=== PATIENT | female | born 1985 | race Caucasian/White ===

== ENCOUNTER 2016-06-27 14:31 | Emergency (ER) | payer MEDICAID ==
[~2016-06-27 14:31] MED LIST: ACID CONTROLLER20 M1 PO; ACID REDUCER75 M1 PO; AUGMENTIN 875-1 EAC2 PO; BENTYL20 M1 PO; CLARITIN10 M6 PO; CYCLOBENZAPRINE5 M1 PO; DICYCLOMINE HCL20 M1 PO; ELIQUIS2.5 M1; LOVENOX40 MG/0.1 SC; LOVENOX60 MG/0.1 SC; MACROBID 100 M100 M1 PO; METHERGINE0.2 M1 PO; NO HOME MEDICATION XX; PRENATAL COMPL1 EACH PO; PROMETHAZINE HC25 M3 PO; PROMETHAZINE12.5 M2 PO; SINGULAIR10 M1 PO; TYLENOL WITH C1 EACH PO; TYLENOL325 M2 PO; ZOFRAN4 M2 PO; ZOLOFT50 M1 PO; ZOVIRAX400 M1 PO; ZYRTEC10 M7 PO
[2016-06-27] MEDS ORDERED: LOVENOX40 MG/0.1 SC (15:53)
[2016-06-27 16:37] LABS: URINE APPEARANCE CLEAR; URINE BILIRUBIN NEGATIVE (NEG); URINE BLOOD NEGATIVE (NEG); URINE COLOR YELLOW; URINE GLUCOSE (UA) NEGATIVE (NEG); URINE KETONE NEGATIVE (NEG); URINE LEUKOCYTE ESTERASE NEGATIVE (NEG); URINE NITRITE NEGATIVE (NEG); URINE PROTEIN NEGATIVE (NEG)
[2016-06-27 16:38] LABS: BASO % 0.4 % (0-2); EOS % 1.4 % (0-7); EOSINOPHIL ABSOLUTE COUNT 0.1 tho/cmm (0.0-0.7); HCT-HEMATOCRIT 43.2 % (34.0-49.0); IMMATURE GRANULOCYTES ABSOLUTE 0.01 tho/cmm (0-0.03); IMMATURE GRANULOCYTES PERCENT 0.2 % (0-0.3); LYMPH % 33.9 % (20-45); LYMPH ABSOLUTE COUNT 1.7 tho/cmm (0.8-4.5); MCHC MEAN CORPUSCULAR HGB CONC 34.7 % (32.0-36.0); MCV (MEAN CELL VOLUME) 95.2 fl (82.0-96.0); MONOCYTE ABSOLUTE COUNT 0.4 tho/cmm (0.0-1.2); NEUTROPHIL ABSOLUTE COUNT 2.9 tho/cmm (1.6-8.0); NEUTROPHIL-AUTOMATED 2.9 tho/cmm (1.6-8.0); NEUTROPHILS % 57.1 % (40-80); PLATELET COUNT 176 tho/cmm (150-450); RED BLOOD COUNT 4.54 mil/cmm (4.00-5.20); RED CELL DISTRIBUTION WIDTH 13.2 % (12.4-16.4); WHITE BLOOD COUNT 5.1 tho/cmm (4.0-10.0)
[2016-06-27 16:50] LABS: ANION GAP 12 mmol/L (0-20); BLOOD UREA NITROGEN 9 mg/dl (6-24); CALCIUM 9.3 mg/dl (8.5-10.5); CARBON DIOXIDE-VENOUS 24 mmol/L (22-32); CHLORIDE 105 mmol/l (96-110); CREATININE 0.53 mg/dl (0.50-1.10); GLUCOSE 77 mg/dL (70-110); SODIUM 137 mmol/L (135-145); eGFR VALUE FOR BLACK >90 mL/Min
[2016-06-27 16:52] LABS: POTASSIUM 3.9 mmol/L (3.7-5.1)
[2016-12-05] MEDS ORDERED: BACTROBAN15 G1 TP (21:10)
== END 2016-06-27 19:00 ==
LOC: EDMED 14:31
PROVIDERS: Emergency Medicine
DX: O99.281 Endocrine, nutritional and metabolic diseases complicating pregnancy, first trimester (principal); E86.0 Dehydration; O99.89 Other specified diseases and conditions complicating pregnancy, childbirth and the puerperium; R19.7 Diarrhea, unspecified; Z3A.09 9 weeks gestation of pregnancy; Z86.718 Personal history of other venous thrombosis and embolism; Z87.891 Personal history of nicotine dependence
CPT/HCPCS: J7030

== ENCOUNTER 2016-07-26 12:29 | Emergency (ER) | payer MEDICAID ==
[2016-07-26 13:44] LABS: URINE BILIRUBIN NEGATIVE (NEG); URINE BLOOD NEGATIVE (NEG); URINE GLUCOSE (UA) NEGATIVE (NEG); URINE KETONE NEGATIVE (NEG); URINE LEUKOCYTE ESTERASE NEGATIVE (NEG); URINE NITRITE NEGATIVE (NEG); URINE PROTEIN NEGATIVE (NEG)
[2016-07-26 13:49] LABS: URINE APPEARANCE HAZY; URINE COLOR YELLOW
[2016-12-05] MEDS ORDERED: BACTROBAN15 G1 TP (21:10)
== END 2016-07-26 14:47 ==
LOC: EDMED 12:29
PROVIDERS: Emergency Medicine
DX: S39.012A Strain of muscle, fascia and tendon of lower back, initial encounter (principal); Z86.718 Personal history of other venous thrombosis and embolism; Z79.899 Other long term (current) drug therapy; X50.1XXA Overexertion from prolonged static or awkward postures, initial encounter; Y93.89 Activity, other specified; Y99.8 Other external cause status